=== PATIENT | female | born 1975 ===

== ENCOUNTER 2017-07-12 06:58 | Day surgery (SDC) | payer OTHER ==
[2016-10-16 12:11] VITALS: BMI 23.8
[2017-07-12 07:42] VITALS: O2SAT 99
[2017-07-12] MEDS ORDERED: Propofol 10 mg/ml Inj (20 ML) ONE (07:43)
[2017-07-12] MEDS ORDERED: Lactated Ringer's 1,000 ML IV ONE (08:15)
--- NOTE | 2017-07-12 08:18 | CP.SDSHP ---
Same Day Surgery H & P - History Proposed Procedure: EGD Pre-Op Diagnosis: abdominal pain - Previous Medical/Surgical History Previous Surgical History: cholecystectomy - Allergies Allergies: Allergies No Known Allergies Allergy (Verified 07/12/17 07:30) - Physical Exam General Appearance: NAD Vital Signs: Vital Signs 07/12/17 07:15 Temperature 97.8 F Pulse Rate 74 Respiratory 19 Rate Blood Pressure 107/69 O2 Sat by Pulse 99 Oximetry Mental Status: Alert & Oriented x3 Neuro: WNL Heart: WNL Lungs: WNL GI: WNL - {Optional Preform as Required} Abdomen: WNL - Impression Pt. Evaluated Today:Candidate for Anesthesia & Procedure: Yes - Date & Time Date: 07/12/17 Time: 08:18 Short Stay Discharge - Short Stay Discharge Admitting Diagnosis/Reason for Visit: ABDOMINAL PAIN Disposition: HOME/ ROUTINE
[2017-07-12 08:49] VITALS: TEMP 97.2
[2017-07-12 13:56] VITALS: RESP 14
[2017-07-12 14:00] VITALS: BP 98/66; PULSE 74
== END 2017-07-12 09:30 | disposition home or self-care (01) ==
LOC: C.ENDO 06:58
PROVIDERS: ATTEND Internal Medicine Gastroenterology
DX: K21.0 Gastro-esophageal reflux disease with esophagitis (principal); K44.9 Diaphragmatic hernia without obstruction or gangrene; K29.70 Gastritis, unspecified, without bleeding
CPT/HCPCS: 43239; 84703; 88305; 88312; 88313; 88342; J2704; J3010; J7120

== ENCOUNTER 2018-08-01 08:29 | Outpatient (CLI) | payer OTHER | END 2018-08-01 08:30 | disposition home or self-care (01) | LOC: C.LAB 08:29 ==